=== PATIENT | male | born 1950 | race Caucasian/White ===

== ENCOUNTER 2025-06-22 13:56 | Outpatient (CLI) | payer OTHER, SELFPAY | END 2025-06-22 13:57 | disposition home or self-care (01) | PROVIDERS: PCP Nurse Practitioner Family; Visit Provider Nurse Practitioner Family | DX: R42 Dizziness and giddiness (principal); R25.1 Tremor, unspecified; R63.4 Abnormal weight loss; Z82.49 Family history of ischemic heart disease and other diseases of the circulatory system; Z13.6 Encounter for screening for cardiovascular disorders; Z13.21 Encounter for screening for nutritional disorder; R79.89 Other specified abnormal findings of blood chemistry | CPT/HCPCS: 80053; 80061; 82306; 82607; 82728; 82746; 84443; 85025 ==

== ENCOUNTER 2025-06-29 15:05 | Outpatient (CLI) | payer OTHER, SELFPAY | END 2025-06-29 15:06 | disposition home or self-care (01) | PROVIDERS: PCP Nurse Practitioner Family; Visit Provider Nurse Practitioner Family | DX: E83.19 Other disorders of iron metabolism (principal); R74.01 Elevation of levels of liver transaminase levels | CPT/HCPCS: 81256; 83540; 85045; 86803 ==

== ENCOUNTER 2025-08-08 14:47 | Outpatient (CLI) | payer OTHER, SELFPAY | END 2025-08-08 14:48 | disposition home or self-care (01) | PROVIDERS: PCP Nurse Practitioner Family; Visit Provider Nurse Practitioner Family | DX: Z12.5 Encounter for screening for malignant neoplasm of prostate (principal); R74.8 Abnormal levels of other serum enzymes | CPT/HCPCS: 80076; G0103 ==

== ENCOUNTER 2025-08-17 14:17 | Outpatient (CLI) | payer OTHER, SELFPAY ==
[2025-08-17 14:51] LABS: Creatinine* 0.6 mg/dL (0.5-1.5); Estimated Glomerular Filt Rate 102 ml/min
--- NOTE | 2025-08-17 15:00 | CRLHL7_ITS ---
For Patients: As a result of the Century Cures Act, medical imaging exams and procedure reports are released immediately into your electronic medical record. You may view this report before your referring provider. If you have questions, please contact your health care provider. INDICATION: Weight loss elevated PSA TECHNIQUE: CT chest, abdomen and pelvis acquired with 74 cc Omnipaque 350 IV contrast. Multiplanar axial, coronal, and sagittal reformats are included. MIP images. COMPARISON: None. FINDINGS: CHEST: Cardiovascular structures: Heart size is normal. Thoracic aorta and main pulmonary artery are normal in caliber. Mediastinum and marci: No mass or adenopathy. Lungs and pleura: Lungs and pleural spaces are clear. No suspicious nodules, infiltrates, or effusions. Chest wall and axilla: No mass or adenopathy. ABDOMEN AND PELVIS: Liver: Fatty appearance of the liver. Gallbladder and bile ducts: Unremarkable. Pancreas: Unremarkable. Spleen: Unremarkable. Adrenal glands: Unremarkable. Kidneys: Unremarkable. GI tract: Unremarkable. Vascular structures: Abdominal aorta is normal in caliber. Lymph nodes: Mildly prominent retroperitoneal nodes. Example 9 millimeters short axis aortocaval node Miscellaneous: Unremarkable. No free air or significant free fluid. Pelvic Organs: Nondistended urinary bladder with wall thickening. Prostate gland is normal size. Bones: Diffuse sclerotic lesions throughout the bony skeleton. Acute fracture is not seen. Degenerative change of the spine. IMPRESSION: 1. No acute pulmonary findings. 2. Prostate gland normal size. Minimally prominent retroperitoneal nodes. 3. Widespread sclerotic lesions throughout the bony skeleton suggesting bone metastasis probably from prostate cancer. Please note that all CT scans at this facility use dose modulation, iterative reconstruction, and/or weight-based dosing when appropriate to reduce radiation dose to as low as reasonably achievable. Dictated by Rose Mary Villavicencio MD @ 08/21/2025 7:12:22 AM (Electronically Signed)
== END 2025-08-17 14:18 | disposition home or self-care (01) ==
LOC: CT 14:19
PROVIDERS: PCP Nurse Practitioner Family; Visit Provider Nurse Practitioner Family
DX: R63.4 Abnormal weight loss (principal); M89.9 Disorder of bone, unspecified; R97.20 Elevated prostate specific antigen [PSA]; R74.8 Abnormal levels of other serum enzymes
CPT/HCPCS: 36415; 71260; 74177; 82565; Q9967

== ENCOUNTER 2025-08-22 13:34 | Outpatient (CLI) | payer OTHER, SELFPAY | END 2025-08-22 13:35 | disposition home or self-care (01) | PROVIDERS: PCP Nurse Practitioner Family; Visit Provider Nurse Practitioner Family | DX: R06.00 Dyspnea, unspecified (principal) | CPT/HCPCS: 80048; 85025 ==

== ENCOUNTER 2025-09-22 12:03 | Emergency (ER) | payer OTHER, SELFPAY ==
--- OUTSIDE RECORDS SUMMARY | 2025-09-01 12:00 | XMS_ITS | Encounter Summary ---
Author Organization [facility] Address [address] [place] [address] Care Team Providers Care Supervisor Engraving Name Role Phone None Reported, Pcp Primary Care Provider Unavail able Reason for Referral * Outpatient (Routine) - Closed Specialty Diagnoses / Procedures Referred By Howard acosta Referred To Contact Diagnoses Elevated Prostate-Specific Antigen Procedures URO Prostate transperineal biopsy Ananda Moss M.D. [address] [place] [phone] Phone: tel: fax: [facility] Referral ID Status Reason Start Date Expiration Date Visits Re quested Visits Authorized [id number] Closed 09/01/2025 12/02/2026 1 1 Reason for Visit * Outpatient (Routine) - Closed Specialty Diagnoses / Procedures Referred By Howard acosta Referred To Contact Urology Diagnoses Elevated Prostate-Specific Antigen Abnormal Findings On Diagnostic Imaging Of Other Specified Body Structures Nevin Sanders, C.N.P. [address] [place] [phone] Phone: tel: fax: [facility] Referral ID Status Reason Start Date Expiration Date Visits Re quested Visits Authorized [id number] Closed 08/23/2025 02/22/2027 1 1 Encounter Details Date Type Department Care Team (Latest Contact Info) Description 09/01/2025 1:00 PM CDT Comprehensive Visit Department of Urology in [place], [place] [address] [place] [phone] Ananda Moss M.D. [address] [place] [phone] Elevated Prostate-Specific Antigen (Primary Dx) Social History Tobacco Use Types Packs/Day Years Used Date Smoking Tobacco: Every Day Cigarettes 0.5 50 Smokeless Tobacco: Never Sex and Gender Information Value Date Recorded Sex Assigned at Not on file Legal Sex Male 6:28 AM DAIRY SCIENCE TEACHER Gender Identity Not on file Sexual Orientation Not on file documented as of this encounter Consult Notes * Ananda Moss M.D., M.P.H. - 09/01/2025 1:00 PM CDT Images from the original note were not included. SUBJECTIVE CHIEF COMPLAINT / REASON FOR VISIT Elevated PSA HISTORY OF PRESENT ILLNESS Micheal Briseno is a 74 y.o. male who presents for evaluation of elevated PSA. PSA: >100 08/08/2025 Prostate MRI: never CT chest/abdomen/pelvis: Locally on 08/17/2025 demonstrated prostate gland normal size. Minimally prominent retroperitoneal nodes. Widespread sclerotic lesions throughout the bony skeleton suggestiveof bone metastasis. Prostate biopsy: none Past Medical History: Hepatic stenosis Pre-DM Past Surgical History: No prior abdominal surgery History of Prior Radiation: None History of Prior Chemotherapy: None REVIEW OF SYSTEMS Complete 10-point review of systems was performed and is otherwise non- contributory except as notedabove in HPI. OBJECTIVE PHYSICAL EXAM There were no vitals filed for this visit. There is no height or weight on file to calculate BMI. BMI 20.5 Well nourished male, no distress Normocephalic, atraumatic Extraocular movements intact Respirations even and unlabored Abdomen soft, nontender Extremities warm and well perfused Musculoskeletal: moves all extremities with no apparent limitations to range of motion Neurologic: alert, oriented, converses appropriately Psych: congruent mood and affect Images personally reviewed by me: Suspicion for colin metastases on my review Assessment 74 y.o. male w/ PSA > 100 and radiographic concern for metastatic prostate cancer PLAN Office TP prostate biopsy (systematic only, just to establish a tissue diagnosis but would not pursue MRI beforehand) Staging PSMA PET CT for presumed metastatic prostate cancer [facility] and [facility] consults for presumed metastatic prostate cancer Ananda Moss MD Urologic Oncology [facility] * Bill Khanna M.D. - 09/01/2025 1:00 PM CDT Images from the original note were not included. CHIEF COMPLAINT / REASON FOR VISIT Elevated PSA HISTORY OF PRESENT ILLNESS Micheal Briseno is a 74 y.o. male who presents for evaluation of elevated PSA. PSA: >100 08/08/2025 Prostate MRI: never CT chest/abdomen/pelvis: Locally on 08/17/2025 demonstrated prostate gland normal size. Minimally prominent retroperitoneal nodes. Widespread sclerotic lesions throughout the bony skeleton suggestiveof bone metastasis. Prostate biopsy: none Past Medical History: Hepatic stenosis Pre-DM Past Surgical History: No prior abdominal surgery History of Prior Radiation: None History of Prior Chemotherapy: None REVIEW OF SYSTEMS Complete 10-point review of systems was performed and is otherwise non- contributory except as notedabove in HPI. OBJECTIVE[]Expand by Default PHYSICAL EXAM There were no vitals filed for this visit. There is no height or weight on file to calculate BMI. BMI 20.5 Well nourished male, no distress Normocephalic, atraumatic Extraocular movements intact Respirations even and unlabored Abdomen soft, nontender Extremities warm and well perfused Musculoskeletal: moves all extremities with no apparent limitations to range of motion Neurologic: alert, oriented, converses appropriately Psych: congruent mood and affect Images personally reviewed by me: Suspicion for colin metastases on my review Assessment 74 y.o. male w/ PSA > 100 and radiographic concern for metastatic prostate cancer PLAN Office TP prostate biopsy (systematic only, just to establish a tissue diagnosis but would not pursue MRI beforehand) Staging PSMA PET CT for presumed metastatic [facility] Discussed plan with Dr. Moss who agrees. Patient unfortunately left prior to visit with Dr. Moss. Voicemail left with definitive plan. Bill Khanna M.D. Urology, PGY-2 documented in this encounter Plan of Treatment Upcoming Encounters Date Type Department Care Team (Late st Contact Info) Description 10/24/2025 2:30 PM DAIRY SCIENCE TEACHER Lab Department of Laboratory Medicine and Pathology, [facility] in [place], [place] [address] [place] [phone] Ananda Moss M.D. [address] [place] [phone] 10/24/2025 4:15 PM DAIRY SCIENCE TEACHER Appointment Department of Radiology, [facility] in [place], [place] [address] [place] [phone] Ananda Moss M.D. [address] [place] [phone] 10/27/2025 1:20 PM DAIRY SCIENCE TEACHER Comprehensive Visit Department of Oncology in [place], [place] [address] [place] [phone] Jerome Gama M.D. [address] [place] [phone] documented as of this encounter Results * [place] BIOPSY PROSTATE NEEDLE/PUNCH, [place] US TRANSRECTAL (09/14/2025 8:00 AM DAIRY SCIENCE TEACHER) Narrative Garth Giang P.A.-C. - 09/14/2025 8:00 AM DAIRY SCIENCE TEACHER Garth Giang P.A.-C. 09/14/2025 3:40 PM URO Prostate transperineal biopsy Performed by: Garth Giang P.A.-C. Authorized by: Ananda Moss M.D., M.P.H. Care team members present 1. Garth Giang P.A.-C. 3. Teddy Wilkerson 5. Renee Flores L.PSanamNSanam IMPRESSION abnormal prostate ultrasound PROCEDURE DETAILS Biopsy option(s) include: Standard Biopsy type: transperineal Technique: End-fire Antibiotics at time of procedure: no ULTRASOUND DETAILS: Ultrasound image guidance used to localize target, identify at risk structures, and dynamically used to direct therapy to the target. Image(s) acquired and saved. Ultrasound performed for diagnostic purposes. Prostate height (mm): 41 Prostate width (mm): 35 Prostate length (mm): 48 Prostate (Ellipsoid) volume (cc): 36.1 CONSENT Consent obtained: written (Risks, benefits and alternatives were discussed and a written Informed Consent was obtained. Please see Informed Consent form for further details.) UNIVERSAL PROTOCOL All relevant documentation and testing were reviewed and available. All required blood products, implants, devices and or special equipment were made available as applicable. Pre-procedure verification was conducted and the correct site was marked if required. A fire risk and smoke assessment were done as applicable. The procedural time-out to verify correct patient, correct side/site, and procedure was conducted prior to performing the procedure and confirmed in a procedural pause. PRE PROCEDURE DETAILS Procedure purpose: Diagnostic Indications: Elevated PSA Digital rectal exam findings: Abnormal Skin preparation: Chlorhexidine SEDATION / ANESTHESIA Anesthesia method: local infiltration POST PROCEDURE DETAILS Procedure completed successfully: yes Complications: None COMMENTS Prostate ultrasound demonstrated large regions of hypoechoic change in the peripheral zone from apex to base. Four samples were taken from the right side labeled as right prostate. Two samples were taken from the left prostate labeled as left prostate. The patient began to not tolerate things and I terminated the procedure. Ananda Moss M.D. UROLOGY ORDERABLES Final Res ult * Bacterial Culture, Aerobic + Susceptibility, Urine (09/12/2025 11:12 AM DAIRY SCIENCE TEACHER) Urine Culture No growth after 1 day of incubation. 09/13/2025 8:03 AM DAIRY SCIENCE TEACHER [facility] Urine (Urine, Midstream) 09/12/2025 11:12 AM DAIRY SCIENCE TEACHER 09/12/2025 1:34 PM DAIRY SCIENCE TEACHER Comment:Specimen Source Site : Urine Ananda Moss M.D. LAB MICROBIOLOGY - GENERAL O RDERABLES Final Result [facility] [address] [place] [address], [facility] [place] [address] [place] [address] * (ABNORMAL) Urinalysis, with Microscopic: Urine, Midstream (09/12/2025 11:12 AM DAIRY SCIENCE TEACHER) Source Urine, Urine, Midstream 09/12/2025 11:16 AM DAIRY SCIENCE TEACHER [employer]AT Clarity Clear Clear 09/12/2025 11:21 AM DAIRY SCIENCE TEACHER [employer]AT Color Yellow 09/12/2025 11:21 AM DAIRY SCIENCE TEACHER [employer]AT Comment: ----REFERENCE VALUE---- Colorless Yellow Emeli Blood Negative Negative 09/12/2025 11:21 AM DAIRY SCIENCE TEACHER [employer]AT Nitrite, U Negative Negative 09/12/2025 11:21 AM DAIRY SCIENCE TEACHER [employer]AT Leukocyte Esterase Negative Negative 09/12/2025 11:21 AM DAIRY SCIENCE TEACHER [employer] Protein, U Trace mg/dL 09/12/2025 11:21 AM DAIRY SCIENCE TEACHER [employer] Comment: ----REFERENCE VALUE---- Negative Trace Glucose Negative Negative mg/dL 09/12/2025 11:21 AM DAIRY SCIENCE TEACHER [employer]AT Ketone Trace(A) Negative mg/dL 09/12/2025 11:21 AM DAIRY SCIENCE TEACHER [employer]AT Bilirubin Negative Negative 09/12/2025 11:21 AM DAIRY SCIENCE TEACHER [employer] pH 5.5 5.0 - 8.0 09/12/2025 11:21 AM DAIRY SCIENCE TEACHER [employer] Specific [place] 1.019 1.001 - 1.035 09/12/2025 11:21 AM DAIRY SCIENCE TEACHER [employer]AT Urobilinogen 2.0(A) 0.2 - 1.0 mg/dL 09/12/2025 11:21 AM DAIRY SCIENCE TEACHER [employer]AT White Blood Cells None Seen /hpf 09/12/2025 11:21 AM DAIRY SCIENCE TEACHER [employer]AT Comment: ----REFERENCE VALUE---- Males: 0-3 Females: 0-10 Unknown: 0-10 Red Blood Cells None Seen 0 - 2 /hpf 11:21 AM DAIRY SCIENCE TEACHER [employer]AT Hyaline Casts 1-3 /lpf 09/12/2025 11:21 AM DAIRY SCIENCE TEACHER [employer]AT Mucus Present /hpf 09/12/2025 11:21 AM DAIRY SCIENCE TEACHER [employer] Urine (Urine, Midstream) 09/12/2025 11:12 AM DAIRY SCIENCE TEACHER 09/12/2025 11:12 AM DAIRY SCIENCE TEACHER Ananda Moss M.D. LAB URINE ORDERABLES Final R esult [facility] [address] [place] [address], [place] [employer] [facility] [place] [address] [place] [address] documented in this encounter Visit Diagnoses Diagnosis Elevated Prostate-Specific Antigen- Primary Elevated Prostate-Specific Antigen- Primary documented in this encounter Care Teams Supervisor Engraving Relationship Specialty Start Date End Date None Reported, Pcp PCP - General 10/06/22 documented as of this encounter
--- OUTSIDE RECORDS SUMMARY | 2025-09-12 10:57 | XMS_ITS | Encounter Summary ---
Author Organization [facility] Address [address] [place] [address] Care Team Providers Care Cook Helper Name Role Phone None Reported, Pcp Primary Care Provider Unavail able Encounter Details Date Type Department Care Team (Latest Contact Info) Description 09/12/2025 10:57 AM SPIKE MACHINE HEATER - 09/12/2025 11:59 PM SPIKE MACHINE HEATER Hospital Encounter Department of Laboratory Medicine in [place], [place] [address] [phone] Ananda Moss M.D. 200 [place] [phone] Elevated Prostate-Specific Antigen Discharge Disposition: Home or Self Care Social History Tobacco Use Types Packs/Day Years Used Date Smoking Tobacco: Every Day Cigarettes 0.5 50 Smokeless Tobacco: Never Sex and Gender Information Value Date Recorded Sex Assigned at Not on file Legal Sex Male 6:28 AM SPIKE MACHINE HEATER Gender Identity Not on file Sexual Orientation Not on file documented as of this encounter Plan of Treatment Upcoming Encounters Date Type Department Care Team (Late st Contact Info) Description 10/24/2025 2:30 PM SPIKE MACHINE HEATER Lab Department of Laboratory Medicine and Pathology, [place], [place] [address] [place] [phone] Ananda Moss M.D. [address] [place] [phone] 10/24/2025 4:15 PM SPIKE MACHINE HEATER Appointment Department of Radiology, [facility] in [place], [place] [address] [place] [phone] Ananda Moss M.D. [address] [place] [phone] 10/27/2025 1:20 PM SPIKE MACHINE HEATER Comprehensive Visit Department of Oncology in [place], [place] [address] [place] [phone] Jerome Gama M.D. [address] [place] [phone] documented as of this encounter Procedures Procedure Name Priority Date/Time Associated Diagnosis Comments BACTERIAL CULTURE, AEROBIC + SUSC, URINE Routine 09/12/2025 11:12 AM SPIKE MACHINE HEATER Elevated Prostate-Specific Antigen URINALYSIS WITH MICROSCOPIC Routine 09/12/2025 11:12 AM SPIKE MACHINE HEATER Elevated Prostate-Specific Antigen documented in this encounter Results * Bacterial Culture, Aerobic + Susceptibility, Urine (09/12/2025 11:12 AM SPIKE MACHINE HEATER) Urine Culture No growth after 1 day of incubation. 09/13/2025 8:03 AM SPIKE MACHINE HEATER [facility] Urine (Urine, Midstream) 09/12/2025 11:12 AM SPIKE MACHINE HEATER 09/12/2025 1:34 PM SPIKE MACHINE HEATER Comment:Specimen Source Site : Urine Ananda Moss M.D. LAB MICROBIOLOGY - GENERAL O RDERABLES Final Result [facility] [address] [place] [phone], [facility] in [address] [address] * (ABNORMAL) Urinalysis, with Microscopic: Urine, Midstream (09/12/2025 11:12 AM SPIKE MACHINE HEATER) Source Urine, Urine, Midstream 09/12/2025 11:16 AM SPIKE MACHINE HEATER OWAT Clarity Clear Clear 09/12/2025 11:21 AM SPIKE MACHINE HEATER [employer]AT Color Yellow 09/12/2025 11:21 AM SPIKE MACHINE HEATER [employer] Comment: ----REFERENCE VALUE---- Colorless Yellow Emeli Blood Negative Negative 09/12/2025 11:21 AM SPIKE MACHINE HEATER OWAT Nitrite, U Negative Negative 09/12/2025 11:21 AM SPIKE MACHINE HEATER [employer]AT Leukocyte Esterase Negative Negative 09/12/2025 11:21 AM SPIKE MACHINE HEATER [employer] Protein, U Trace mg/dL 09/12/2025 11:21 AM SPIKE MACHINE HEATER [employer]AT Comment: ----REFERENCE VALUE---- Negative Trace Glucose Negative Negative mg/dL 09/12/2025 11:21 AM SPIKE MACHINE HEATER [employer] Ketone Trace(A) Negative mg/dL 09/12/2025 11:21 AM SPIKE MACHINE HEATER OWAT Bilirubin Negative Negative 09/12/2025 11:21 AM SPIKE MACHINE HEATER [employer] pH 5.5 5.0 - 8.0 09/12/2025 11:21 AM SPIKE MACHINE HEATER [employer]AT Specific [place] 1.019 1.001 - 1.035 09/12/2025 11:21 AM SPIKE MACHINE HEATER [employer]AT Urobilinogen 2.0(A) 0.2 - 1.0 mg/dL 09/12/2025 11:21 AM SPIKE MACHINE HEATER [employer]AT White Blood Cells None Seen /hpf 09/12/2025 11:21 AM SPIKE MACHINE HEATER [employer]AT Comment: ----REFERENCE VALUE---- Males: 0-3 Females: 0-10 Unknown: 0-10 Red Blood Cells None Seen 0 - 2 /hpf 11:21 AM SPIKE MACHINE HEATER OWAT Hyaline Casts 1-3 /lpf 09/12/2025 11:21 AM SPIKE MACHINE HEATER [employer]AT Mucus Present /hpf 09/12/2025 11:21 AM SPIKE MACHINE HEATER OWAT Urine (Urine, Midstream) 09/12/2025 11:12 AM SPIKE MACHINE HEATER 09/12/2025 11:12 AM SPIKE MACHINE HEATER us Ananda Moss M.D. LAB URINE ORDERABLES Final R esult [facility] [address] [place] [address], [place] OW[place] [facility] in [place] [address] [place] [address] documented in this encounter Visit Diagnoses Diagnosis Elevated Prostate-Specific Antigen documented in this encounter Care Teams Cook Helper Relationship Specialty Start Date End Date None Reported, Pcp PCP - General 10/06/22 documented as of this encounter
--- OUTSIDE RECORDS SUMMARY | 2025-09-14 08:00 | XMS_ITS | Encounter Summary ---
Author Organization [facility] [place] Address [address] [place] [address] Care Team Providers Care Group Underwriter Name Role Phone None Reported, Pcp Primary Care Provider Unavail able Reason for Visit * Outpatient (Routine) - Closed Specialty Diagnoses / Procedures Referred By Contanny t Referred To Contact Diagnoses Elevated Prostate-Specific Antigen Procedures URO Prostate transperineal biopsy Ananda Moss M.D. [address] [place] [phone] Phone: tel: fax: [facility] Referral ID Status Reason Start Date Expiration Date Visits Re quested Visits Authorized [id number] Closed 09/01/2025 12/02/2026 1 1 Encounter Details Date Type Department Care Team (Latest Contact Info) Description 09/14/2025 8:00 AM VISCERA WASHER Procedure visit Department of Urology in [place], [place] [address] [place] [phone] Ananda Moss M.D. [address] [place] [phone] Garth Giang P.A.-C. [address] [place] [phone] Elevated Prostate-Specific Antigen (Primary Dx) Social History Tobacco Use Types Packs/Day Years Used Date Smoking Tobacco: Every Day Cigarettes 0.5 50 Smokeless Tobacco: Never Sex and Gender Information Value Date Recorded Sex Assigned at Not on file Legal Sex Male 6:28 AM VISCERA WASHER Gender Identity Not on file Sexual Orientation Not on file documented as of this encounter Last Filed Vital Signs Vital Sign Reading Time Taken Comments Blood Pressure 108/74 09/14/2025 9:05 AM VISCERA WASHER Pulse 87 09/14/2025 9:05 AM VISCERA WASHER Temperature - - Respiratory Rate - - Oxygen Saturation - - Inhaled Oxygen Concentration - - Weight - - Height - - Body Mass Index - - documented in this encounter Patient Instructions * Patient Instructions* Renee Flores L.P.N. - 09/14/2025 8:00 AM VISCERA WASHER AFTER THE PROSTATE BIOPSY Urinate before you leave the clinic for the day. Return to where the biopsy was done if: You are not able to urinate when your bladder feels full. You have bright red blood in your urine during the entire urination. For several days after the biopsy, it is normal to have blood in your urine at the beginning of urination. You should drink plenty of non-alcoholic fluids while you have blood in your urine. This maypersist longer if you take aspirin or blood thinners. Blood in your ejaculate (semen) is common and may persist for weeks or perhaps months. Unless the blood is bright red for more than three days, it should go away without treatment. Blood-tinged semenis not harmful to your sexual partner. You may experience bruising, swelling and tenderness of the perineum following the procedure. Thesewill improve with time. A small bandage was placed over the perineum at the end of the procedure. This can be removed after24 hours. If it becomes soiled or wet, it can be removed earlier. Discomfort You may take a non-aspirin pain medication (such as acetaminophen or generic Tylenol???) in the recommended dose as needed for discomfort. Avoid pain relievers that can cause blood thinning until your urine is clear for at least 48 hours. Examples include aspirin, aspirin-containing products, ibuprofen (Advil???, Motrin???), and naproxen (Aleve???, Naprosyn???). Diet Right after the biopsy, drink two to four 8-ounce glasses of fluid. Continue to drink extra fluids for five hours after the biopsy. You may resume your regular diet as you feel able. Activity Rest for the remainder of the day and resume activities as you feel able. You may have mild discomfort in the biopsy area for a few days after the biopsy. For your comfort, for approximately a week after the biopsy you should avoid activities that put direct pressure on the perineum such as bicycleriding, horseback riding, or other activities with the saddle. Bathing You may shower once the bandage is removed. Avoid swimming in any pools, hot tubs, lakes/ocean for 3 days after the procedure. Driving: No sedation is given during the procedure, but you still may feel lightheaded temporarily followingthe procedure. We would recommend that you consider having someone drive you home if able. If you are driving yourself home, make sure you are feeling well before leaving the clinic. When to call your health care provider If you have any of the following symptoms, call your referring urology provider at [phone] during normal business hours. Emergent questions after hours can be addressed by calling and asking to speak to the Urology resident pest controller assistant. -An increase of bright red blood in your urine -A temperature of 100.4 degrees Fahrenheit (38 degrees Celsius) or greater -Chills -Inability to urinate or you are only able to urinate a small amount without relief PROSTATE BIOPSY RESULTS AND RELEASE OF BIOPSY RESULTS ON [facility] PATIENT ONLINE PORTAL Your referring urology service will be responsible for communicating the biopsy results. It is your right to have access to your health information. Having this information can help you become more informed and engaged in your health. [facility] [place] provides you this access through Patient Online Services. You will receive a notification that the report is available. Your biopsy results report will be will released on to the Patient Online Services portal as soon as it is authenticated by the pathology lab. This timing is variable, but generally takes between 2 to 7 business days. Reports may take longer if additional testing such additional tissue staining is required to clarify the diagnosis. If you have portal access, you will be able to see the report before your referring provider has had a chance to review it and contact you with the results and recommendations. Please allow for up to 1 week for your referring team to contact you to review the results and recommendationsonce results are finalized and visible in your portal. If you have not heard from your referring provider within 1 week of seeing the results in the portal please contact them via telephone or portal. The report will provide a summary of the outside event sales specialist's assessment of the results and may include a diagnosis. Your physician will discuss these results with you either through a secure message, a phone call or during your next scheduled appointment. If you prefer, you do not have to view the report and can wait until your referring provider contacts you either through a secure message, a phone call, or during your next appointment. However, the report is there if you want to view it and process the results in your own way. If you do review your results before your referring physician has had an opportunity to contact you, there are some good websites that might be able to provide you with some information about the issues raised by your results including [facility], [employer], and [employer]. Does patient take blood thinning medications? No. ERA WASHER documented in this encounter Procedure Notes * Garth Giang P.A.-C. - 09/14/2025 8:00 AM CSTAssociated Order(s): URO Prostate transperineal biopsy Pre-Procedure Diagnose(s): Elevated Prostate-Specific Antigen Post-Procedure Diagnose(s): Elevated Prostate-Specific Antigen URO Prostate transperineal biopsy Performed by: Garth Giang P.A.-C. Authorized by: Ananda Moss M.D., M.P.H. Care team members present 1. Garth Giang P.A.-C. 3. Teddy Wilkerson 5. Renee Flores L.P.N. IMPRESSION abnormal prostate ultrasound PROCEDURE DETAILS Biopsy [...] tolerate things and I terminated the procedure. ERA WASHER documented in this encounter Plan of Treatment Upcoming Encounters Date Type Department Care Team (Late st Contact Info) Description 10/24/2025 2:30 PM VISCERA WASHER Lab Department of Laboratory Medicine and Pathology, [address] [phone] Ananda Moss M.D. [address] [place] [phone] 10/24/2025 4:15 PM VISCERA WASHER Appointment Department of Radiology, [facility] in [address] [phone] Ananda Moss M.D. [address] [place] [phone] 10/27/2025 1:20 PM VISCERA WASHER Comprehensive Visit Department of Oncology in [address] [phone] Jerome Gama M.D. [address] [place] [phone] documented as of this encounter Procedures Procedure Name Priority Date/Time Associated Diagnosis Comments KS US TRANSRECTAL Routine 09/14/2025 8:0 0 AM VISCERA WASHER Elevated Prostate-Specific Antigen KS BIOPSY PROSTATE NEEDLE/PUNCH Routine 09/14/2025 8:00 AM VISCERA WASHER Elevated Prostate-Specific Antigen SURGICAL PATHOLOGY Routine 09/14/2025 8: 00 AM VISCERA WASHER Elevated Prostate-Specific Antigen documented in this encounter Results * KS BIOPSY PROSTATE NEEDLE/PUNCH, KS US TRANSRECTAL (09/14/2025 8:00 AM VISCERA WASHER) Narrative Garth Giang P.A.-C. - 09/14/2025 8:00 AM VISCERA WASHER aGrth Giang P.A.-C. 09/14/2025 3:40 PM URO Prostate transperineal biopsy Performed by: Garth Giang P.A.-C. Authorized by: Ananda Moss M.D., M.P.H. Care team members present 1. Garth Giang P.A.-C. 3. Teddy Wilkerson 5. Renee Flores, LSanamP.NSanam IMPRESSION abnormal prostate ultrasound PROCEDURE DETAILS Biopsy [...] tolerate things and I terminated the procedure. us Ananda Moss M.D. UROLOGY ORDERABLES Final Res ult * Surgical Pathology (09/14/2025 8:00 AM VISCERA WASHER) 09/18/2025 2:32 PM VISCERA WASHER DTL Participated in the Interpretation Man Vora D.O.-Pathology Fellow 09/18/2025 2:32 PM VISCERA WASHER DTL Report electronically signed by Stefan Simmons M.D., Ph.D. I verify that I have examined all relevant slides/materials for the specimen(s) and rendered or confirmed the diagnosis. 09/18/2025 2:32 PM VISCERA WASHER DTL Gross Description A: Received in formalin labeled with the patient's name, medical record number, and prostate, right are four pale waite soft tissue cores,measuring 1.5-1.9 cm in length and 0.1 cm in average diameter. The specimens are submitted en toto in cassettes A1-A2, two cores ineach cassette. Grossed by LMB. B: Received in formalin labeled with the patient's name, medical record number, and prostate, left are two pale waite soft tissue cores,measuring 1.6 x 0.1 x 0.1 cm and 1.7 x 0.1 x 0.1 cm. The specimens are submitted en toto in cassette B1. Grossed by LMB. 09/18/2025 2:32 PM VISCERA WASHER DTL Interpretation FINAL DIAGNOSIS A. Prostate, right, needle core biopsy: Prostatic adenocarcinoma Type: Acinar Grade Group and Frisco score: Grade Group 3 (Svitlana Score 4+3=7) Percentage of pattern 4: 90% Tumor involves 85% of overall specimen (4 of 4 cores). Most affected core is involved by tumor over 100% of its length. Large cribriform glands present. Perineural invasion present. Findings suggestive of extraprostatic extension identified. B. Prostate, left, needle core biopsy: Prostatic adenocarcinoma Type: Acinar Grade Group and Svitlana score: Grade Group 3 (Svitlana Score 4+3=7) Percentage of pattern 4: 90% Tumor involves 95% of overall specimen (2 of 2 cores). Most affected core is involved by tumor over 100% of its length. Large cribriform glands present. Digital imaging was used in the diagnostic assessment of this case. 09/18/2025 2:32 PM VISCERA WASHER DTL Tissue 09/14/2025 8:00 AM VISCERA WASHER 09/14/2025 9:59 AM VISCERA WASHER us Garth Giang P.A.-C. LAB SURG PATH ORDERAB LES Final Result [facility] [address] [place] [address], [facility] [address] [facility] [address] [place] [address] documented in this encounter Visit Diagnoses Diagnosis Elevated Prostate-Specific Antigen- Primary documented in this encounter Administered Medications Inactive Administered Medications - up to 3 most recent administrations Medication Order MAR Action Action Date Dose Rate Site lidocaine 10 mg/mL (1 %) injection 30 mL (Xylocaine) 30 mL, injection, Once, On Sarah Beth 09/14/25 at 0800, For 1 dose Given by Other 09/14/2025 8:32 AM VISCERA WASHER 30 mL documented in this encounter Care Teams Group Underwriter Relationship Specialty Start Date End Date None Reported, Pcp PCP - General 10/06/22 documented as of this encounter
[2025-09-22] VITALS (24 sets, daily range): BP systolic 118–146; BP diastolic 53–77; PULSE 74–87; RESP 20; TEMP 37.2; O2SAT 93–100; BMI 20.3
--- OUTSIDE RECORDS SUMMARY | 2025-09-22 12:05 | XMS_ITS | Encounter Summary ---
Author Organization [facility] Address [address] [place] [address] Care Team Providers Care Exhibits Curator Name Role Phone None Reported, Pcp Primary Care Provider Unavail able Reason for Visit * Reason Onset Date Comments [facility] - Outside Materials 08/28/2025 Urology Encounter Details Date Type Department Care Team (Latest Contact Info) Description 08/28/2025 Clinical Communication Department of Urology in [place], [place] [address] [place] [phone] Provider, Unknown [facility] - Outside Materials (Urology/) Social History Tobacco Use Types Packs/Day Years Used Date Smoking Tobacco: Every Day Cigarettes 0.5 50 Smokeless Tobacco: Never Sex and Gender Information Value Date Recorded Sex Assigned at Not on file Legal Sex Male 6:28 AM BUTCHER APPRENTICE Gender Identity Not on file Sexual Orientation Not on file documented as of this encounter Plan of Treatment Upcoming Encounters Date Type Department Care Team (Late st Contact Info) Description 10/24/2025 2:30 PM BUTCHER APPRENTICE Lab Department of Laboratory Medicine and Pathology, [facility] in [place], [place] [address] [place] [phone] Ananda Moss M.D. [address] [place] [phone] 10/24/2025 4:15 PM BUTCHER APPRENTICE Appointment Department of Radiology, [facility], in [place], [place] [address] [place] [phone] Ananda Moss M.D. [address] [place] [phone] 10/27/2025 1:20 PM BUTCHER APPRENTICE Comprehensive Visit Department of Oncology in [place], [place] [address] [place] [phone] Jerome Gama M.D. [address] [place] [phone] documented as of this encounter Visit Diagnoses Not on filedocumented in this encounter Care Teams Exhibits Curator Relationship Specialty Start Date End Date None Reported, Pcp PCP - General 10/06/22 documented as of this encounter
--- OUTSIDE RECORDS SUMMARY | 2025-09-22 12:05 | XMS_ITS | Encounter Summary ---
Author Organization [facility] Address [address] [place] [address] Care Team Providers Care Wax Engraver Name Role Phone None Reported, Pcp Primary Care Provider Unavail able Reason for Referral * Outpatient (Routine) - Closed Specialty Diagnoses / Procedures Referred By Contac t Referred To Contact Urology Diagnoses Elevated Prostate-Specific Antigen Abnormal Findings On Diagnostic Imaging Of Other Specified Body Structures Nevin Sanders, C.N.P. [address] [place] [address] Phone: tel: fax: [facility] Referral ID Status Reason Start Date Expiration Date Visits Re quested Visits Authorized [id number] Closed 08/23/2025 02/22/2027 1 1 Encounter Details Date Type Department Care Team (Late Contact Info) Description 08/23/[address] [facility] [address] [place] [phone] Nevin Sanders, C.N.P. [address] [place] [address] Elevated Prostate-Specific Antigen (Primary Dx); Abnormal Findings On Diagnostic Imaging Of Other Specified Body Structures Social History Tobacco Use Types Packs/Day Years Used Date Smoking Tobacco: Never Assessed Sex and Gender Information Value Date Recorded Sex Assigned at Not on file Legal Sex Male 6:28 AM ABA THERAPIST Gender Identity Not on file Sexual Orientation Not on file documented as of this encounter Plan of Treatment Upcoming Encounters Date Type Department Care Team (Late st Contact Info) Description 10/24/2025 2:30 PM ABA THERAPIST Lab Department of Laboratory Medicine and Pathology, [facility], in [place], [place] [address] [place] [phone] Ananda Moss M.D. [address] [place] [phone] 10/24/2025 4:15 PM ABA THERAPIST Appointment Department of Radiology, [facility] in [place], [place] [address] [place] [address] Ananda Moss M.D. [address] [place] [phone] 10/27/2025 1:20 PM ABA THERAPIST Comprehensive Visit Department of Oncology in [place], [place] [address] [place] [address] Jerome Gama M.D. [address] [place] [phone] Scheduled Referrals Name Type Priority Associated Diagnoses Orde r Schedule Urology Referral Outpatient Referral Routine Elevated Prostate-Specific Antigen Abnormal Findings On Diagnostic Imaging Of Other Specified Body Structures Expected: 08/23/2025 (Approximate), Expires: 11/23/2026 documented as of this encounter Visit Diagnoses Diagnosis Elevated Prostate-Specific Antigen- Primary Abnormal Findings On Diagnostic Imaging Of Other Specified Body Structures documented in this encounter Care Teams Wax Engraver Relationship Specialty Start Date End Date None Reported, Pcp PCP - General 10/06/22 documented as of this encounter
--- OUTSIDE RECORDS SUMMARY | 2025-09-22 12:05 | XMS_ITS | Encounter Summary ---
Author Organization [facility] Address [address] [place] [address] Care Team Providers Care Test Development Engineer Name Role Phone None Reported, Pcp Primary Care Provider Unavail able Reason for Referral * Outpatient (Routine) - Authorized Specialty Diagnoses / Procedures Referred By Howard t Referred To Contact Medical Oncology / Oncology Diagnoses Primary Malignant Neoplasm Of Prostate (HCC) Ananda Moss M.D. 200 [place] [address] Phone: tel: fax: [facility] Referral ID Status Reason Start Date Expiration Date V isits Requested Visits Authorized [id number] Authorized 09/19/2025 03/21/2027 1 1 ETING TECHNOLOGY SPECIALIST * MRI/CAT/PET Scan (Routine) - Authorized Specialty Diagnoses / Procedures Referred By Howard t Referred To Contact Diagnoses Primary Malignant Neoplasm Of Prostate (HCC) Procedures PET CT Skull to Thigh PSMA [place] [address] Phone: tel: fax: [facility] Referral ID Status Reason Start Date Expiration Date V isits Requested Visits Authorized [id number] Authorized 09/19/2025 12/20/2026 1 1 ETING TECHNOLOGY SPECIALIST Encounter Details Date Type Department Care Team (Late st Contact Info) Description 09/19/2025 Clinical Communication Department of Urology in [place], [place] [address] [place] [phone] Ananda Moss M.D. [address] [place] [phone] Social History Tobacco Use Types Packs/Day Years Used Date Smoking Tobacco: Every Day Cigarettes 0.5 50 Smokeless Tobacco: Never Sex and Gender Information Value Date Recorded Sex Assigned at Not on file Legal Sex Male 6:28 AM MARKETING TECHNOLOGY SPECIALIST Gender Identity Not on file Sexual Orientation Not on file documented as of this encounter Plan of Treatment Upcoming Encounters Date Type Department Care Team (Late st Contact Info) Description 10/24/2025 2:30 PM MARKETING TECHNOLOGY SPECIALIST Lab Department of Laboratory Medicine and Pathology, [place], [place] [address] [place] [phone] Ananda Moss M.D. [address] [place] [phone] 10/24/2025 4:15 PM MARKETING TECHNOLOGY SPECIALIST Appointment Department of Radiology, [place], [place] [address] [place] [phone] Ananda Moss M.D. [address] [place] [phone] 10/27/2025 1:20 PM MARKETING TECHNOLOGY SPECIALIST Comprehensive Visit Department of Oncology in [address] [phone] Jerome Gama M.D. [address] [place] [phone] Scheduled Orders Name Type Priority Associated Diagnoses Order Schedule PET CT Skull to Thigh PSMA Imaging RAD - Routine (most inpatients and all outpatients) Primary Malignant Neoplasm Of Prostate (HCC) Expected: 09/19/2025 (Approximate), Expires: 12/20/2026 Comprehensive Metabolic Panel Lab Routine Primary Malignant Neoplasm Of Prostate (HCC) Expected: 09/19/2025, Expires: 12/20/2026 CBC with Differential, Blood Lab Routine Primary Malignant Neoplasm Of Prostate (HCC) Expected: 09/19/2025, Expires: 12/20/2026 Testosterone, Total and Free Lab Routine Primary Malignant Neoplasm Of Prostate (HCC) Expected: 09/19/2025, Expires: 12/20/2026 Scheduled Referrals Name Type Priority Associated Diagnoses Orde r Schedule Oncology - Medical, consult (clinic) Outpatient Referral Routine Primary Malignant Neoplasm Of Prostate (HCC) Expected: 09/19/2025, Expires: 12/20/2026 documented as of this encounter Visit Diagnoses Diagnosis Primary Malignant Neoplasm Of Prostate (HCC)- Primary documented in this encounter Care Teams Test Development Engineer Relationship Specialty Start Date End Date None Reported, Pcp PCP - General 10/06/22 documented as of this encounter
--- OUTSIDE RECORDS SUMMARY | 2025-09-22 12:06 | XMS_ITS | Clinical Summary ---
Author Organization [facility] Address [address] [place] [address] Care Team Providers Care Brazer [employer] Name Role Phone None Reported, Pcp Primary Care Provider Unavail able Source Comments Patient records contain information from all sites at [facility]. For routine questions regarding patient records, call [phone] during business hours, M-F 8:00 AM - 5:00 PM Central Time. Record requests for emergency care only can be directed to [phone] at any time.[facility] Allergies No known active allergies Medications cefdinir (Omnicef) 300 mg capsuleIndicati ons:Elevated Prostate-Specif ic Antigen Take 1 capsule (300 mg total) by mouth once for 1 dose. Take one hour prior to prostate biopsy 1 capsule 09/11/20 25 Hospital, Clinic, or Other Facility Administered Medication Ordered Dose Route Frequency Start Date End Date Status lidocaine 10 mg/mL (1 %) injection 30 mL (Xylocaine) 30 mL inj Once 09/14/2025 09/14/20 25 Ended Encounters Date Type Department Care Team Description 09/19/2025 Clinical Communication Department of Urology in [place], [place] [address] [place] [address] Ananda Moss M.D. 09/14/2025 8:00 AM CARTOGRAPHY PROFESSOR Procedure visit Department of Urology in [place], [place] [address] [place] [address] Ananda Moss M.D. Christensen, Carl M P.A.Partha Elevated Prostate-Specific Antigen (Primary Dx) 09/12/2025 10:57 AM CARTOGRAPHY PROFESSOR - 09/12/2025 11:59 PM CARTOGRAPHY PROFESSOR Hospital Encounter Department of Laboratory Medicine in [place], [place] [address] [place] [address] Ananda Moss M.D. Elevated Prostate-Specific Antigen Discharge Disposition: Home or Self Care 09/01/2025 1:00 PM CDT Comprehensive Visit Department of Urology in [place], [place] [address] [place] [address] Ananda Moss M.D. Elevated Prostate-Specific Antigen (Primary Dx) 08/28/2025 Clinical Communication Department of Urology in [place], [place] [address] [place] [address] Provider, Unknown [facility] - Outside Materials (Urology/) 08/23/2025 [facility] [address] [place] [address] Nevin Sanders C.NSanamPSanam Elevated Prostate-Specific Antigen (Primary Dx); Abnormal Findings On Diagnostic Imaging Of Other Specified Body Structures from Last 3 Months Immunizations Immunization Administration Dates Next Due HepB, Unspecified 06/23/2000,12/09/1999,11/08/19 00 Influenza Split 10/11/2003,09/20/2001 Social History Tobacco Use Types Packs/Day Years Used Date Smoking Tobacco: Every Day Cigarettes 0.5 50 Smokeless Tobacco: Never Sex and Gender Information Value Date Recorded Sex Assigned at Not on file Legal Sex Male 6:28 AM CARTOGRAPHY PROFESSOR Gender Identity Not on file Sexual Orientation Not on file Last Filed Vital Signs Vital Sign Reading Time Taken Comments Blood Pressure 108/74 09/14/2025 9:05 AM CARTOGRAPHY PROFESSOR Pulse 87 09/14/2025 9:05 AM CARTOGRAPHY PROFESSOR Temperature - - Respiratory Rate - - Oxygen Saturation - - Inhaled Oxygen Concentration - - Weight - - Height - - Body Mass Index - - Plan of Treatment Upcoming Encounters Date Type Department Care Team (Late st Contact Info) Description 10/24/2025 2:30 PM CARTOGRAPHY PROFESSOR Lab Department of Laboratory Medicine and Pathology, [facility] in [place], [place] [address] [place] [address] Ananda Moss M.D. [address] [place] [address] 10/24/2025 4:15 PM CARTOGRAPHY PROFESSOR Appointment Department of Radiology, [facility], in [place], [place] [address] [place] [address] Ananda Moss M.D. [address] [place] [address] 10/27/2025 1:20 PM CARTOGRAPHY PROFESSOR Comprehensive Visit Department of Oncology in [place], [place] [address] [place] [phone] Jerome Gama M.D. [address] [place] [phone] Health Maintenance Due Date Last Done Comments Abdominal Aortic Aneurysm (AAA) Screen 1951 CT Colonography 1951 Cologuard 1950 Colonoscopy 1950 Colorectal Cancer Screening 1950 FIT 1950 Hepatitis C Screening 1950 Lung Cancer Screening 1951 Tobacco Cessation counseling 1951 Zoster Vaccines (1 of 2) 2001 Fasting Glucose for Diabetes Screening 09/30/2022 09/30/2019 Depression Screening (Annual PHQ-2) 11/02/2024 Fall Risk Screen (Annual) 11/02/2024 COVID-19 Vaccine (1 - 2024-2 6 season) 2025 Influenza Vaccine (#1) 2025 3, 09/20/2001 DTaP,Tdap,and Td Vaccines (2 - Td or Tdap) 08/08/2035 08/08/2025 Hepatitis B Vaccines Completed 06/23/2000, 12/09/1999, 11/08/1999 Pneumococcal vaccine (50+ years) Completed 08/08/2025 IPV Vaccines Aged Out No longer eligi ble based on patient's age to complete this topic Procedures Procedure Name Priority Date/Time Associated Diagnosis Comments WI US TRANSRECTAL Routine 09/14/2025 8:0 0 AM CARTOGRAPHY PROFESSOR Elevated Prostate-Specific Antigen WI BIOPSY PROSTATE NEEDLE/PUNCH Routine 09/14/2025 8:00 AM CARTOGRAPHY PROFESSOR Elevated Prostate-Specific Antigen SURGICAL PATHOLOGY Routine 09/14/2025 8: 00 AM CARTOGRAPHY PROFESSOR Elevated Prostate-Specific Antigen URINALYSIS WITH MICROSCOPIC Routine 09/12/2025 11:12 AM CARTOGRAPHY PROFESSOR Elevated Prostate-Specific Antigen BACTERIAL CULTURE, AEROBIC + SUSC, URINE Routine 09/12/2025 11:12 AM CARTOGRAPHY PROFESSOR Elevated Prostate-Specific Antigen OUTSIDE CT BODY Routine 08/17/2025 3:15 PM CDT OUTSIDE MR NEURO Routine 08/02/2025 10:0 0 AM CDT OUTSIDE US BODY Routine 08/02/2025 9:25 AM CDT OUTSIDE DX CHEST Routine 06/22/2025 2:30 PM CDT from Last 3 Months Results * WI BIOPSY PROSTATE NEEDLE/PUNCH, WI US TRANSRECTAL (09/14/2025 8:00 AM CARTOGRAPHY PROFESSOR) Narrative Garth Giang P.A.-C. - 09/14/2025 8:00 AM CARTOGRAPHY PROFESSOR Garth Giang P.A.-C. 09/14/2025 3:40 PM URO Prostate transperineal biopsy Performed by: Garth Giang P.A.-C. Authorized by: Ananda Moss M.D., M.P.H. Care team members present 1. Garth Giang P.A.-C. 3. Teddy Wilkerson 5. Renee Flores LSanamPSanamN. IMPRESSION abnormal prostate ultrasound PROCEDURE DETAILS Biopsy [...] ult * Surgical Pathology (09/14/2025 8:00 AM CARTOGRAPHY PROFESSOR) 09/18/2025 2:32 PM CARTOGRAPHY PROFESSOR DTL Participated in the Interpretation Man Vora D.O.-Pathology Fellow 09/18/2025 2:32 PM CARTOGRAPHY PROFESSOR DTL Report electronically signed by Stefan Simmons M.D., Ph.D. I verify that I have examined all relevant slides/materials for the specimen(s) and rendered or confirmed the diagnosis. 09/18/2025 2:32 PM CARTOGRAPHY PROFESSOR DTL Gross Description A: Received in formalin [...] B1. Grossed by LMB. 09/18/2025 2:32 PM CARTOGRAPHY PROFESSOR DTL Interpretation FINAL DIAGNOSIS A. Prostate, right, needle core biopsy: Prostatic adenocarcinoma Type: Acinar Grade Group and [place] score: Grade Group 3 (Svitlana Score 4+3=7) [...] assessment of this case. 09/18/2025 2:32 PM CARTOGRAPHY PROFESSOR DTL Tissue 09/14/2025 8:00 AM CARTOGRAPHY PROFESSOR 09/14/2025 9:59 AM CARTOGRAPHY PROFESSOR Garth Giang P.A.-C. LAB SURG PATH ORDERAB LES Final Result [facility] [address] [place] [address], [facility] DTL [address] [place] [address] * Bacterial Culture, Aerobic + Susceptibility, Urine (09/12/2025 11:12 AM CARTOGRAPHY PROFESSOR) Urine Culture No growth after 1 day of incubation. 09/13/2025 8:03 AM CARTOGRAPHY PROFESSOR MKTO Urine (Urine, Midstream) 09/12/2025 11:12 AM CARTOGRAPHY PROFESSOR 09/12/2025 1:34 PM CARTOGRAPHY PROFESSOR Comment:Specimen Source Site : Urine us Ananda Moss M.D. LAB MICROBIOLOGY - GENERAL O RDERABLES Final Result [facility] [address] [place] [address], [place] MKTO [facility] in [place] [address] [place] [address] * (ABNORMAL) Urinalysis, with Microscopic: Urine, Midstream (09/12/2025 11:12 AM CARTOGRAPHY PROFESSOR) Source Urine, Urine, Midstream 09/12/2025 11:16 AM CARTOGRAPHY PROFESSOR OWAT Clarity Clear Clear 09/12/2025 11:21 AM CARTOGRAPHY PROFESSOR OWAT Color Yellow 09/12/2025 11:21 AM CARTOGRAPHY PROFESSOR OWAT Comment: ----REFERENCE VALUE---- Colorless Yellow Emeli Blood Negative Negative 09/12/2025 11:21 AM CARTOGRAPHY PROFESSOR OWAT Nitrite, U Negative Negative 09/12/2025 11:21 AM CARTOGRAPHY PROFESSOR OWAT Leukocyte Esterase Negative Negative 09/12/2025 11:21 AM CARTOGRAPHY PROFESSOR OWAT Protein, U Trace mg/dL 09/12/2025 11:21 AM CARTOGRAPHY PROFESSOR OWAT Comment: ----REFERENCE VALUE---- Negative Trace Glucose Negative Negative mg/dL 09/12/2025 11:21 AM CARTOGRAPHY PROFESSOR OWAT Ketone Trace(A) Negative mg/dL 09/12/2025 11:21 AM CARTOGRAPHY PROFESSOR OWAT Bilirubin Negative Negative 09/12/2025 11:21 AM CARTOGRAPHY PROFESSOR OWAT pH 5.5 5.0 - 8.0 09/12/2025 11:21 AM CARTOGRAPHY PROFESSOR OWAT Specific Riner 1.019 1.001 - 1.035 09/12/2025 11:21 AM CARTOGRAPHY PROFESSOR OWAT Urobilinogen 2.0(A) 0.2 - 1.0 mg/dL 09/12/2025 11:21 AM CARTOGRAPHY PROFESSOR OWAT White Blood Cells None Seen /hpf 09/12/2025 11:21 AM CARTOGRAPHY PROFESSOR OWAT Comment: ----REFERENCE VALUE---- Males: 0-3 Females: 0-10 Unknown: 0-10 Red Blood Cells None Seen 0 - 2 /hpf 11:21 AM CARTOGRAPHY PROFESSOR OWAT Hyaline Casts 1-3 /lpf 09/12/2025 11:21 AM CARTOGRAPHY PROFESSOR OWAT Mucus Present /hpf 09/12/2025 11:21 AM CARTOGRAPHY PROFESSOR OWAT Urine (Urine, Midstream) 09/12/2025 11:12 AM CARTOGRAPHY PROFESSOR 09/12/2025 11:12 AM CARTOGRAPHY PROFESSOR Ananda Moss M.D. LAB URINE ORDERABLES Final R esult Performing Organization Address [facility] de Phone Number [facility] [address] [place] [address], [place] OW[place] [facility] [place] [address] [place] [address] * CT chest abdomen pelv w con-Outside CT Body (08/17/2025 3:15 PM CDT) Narrative [facility] - 08/25/2025 8:00 AM CDT This order has been created and auto-finalized to support the import of outside images. If available, original interpretation can be found on the Media Tab in Chart Review, in Document Viewer, as an image in InfinityView or as an Addendum. If a re-interpretation or overread is required please follow defined workflow. us Provider Not In System IMG CT PROCEDURES Final R esult Performing Organization Address [facility] de Phone Number [facility] NA * MR BRAIN WO CONTRAST-Outside MR Neuro (08/02/2025 10:00 AM CDT) Narrative [facility] - 08/25/2025 7:56 AM CDT This order has been created and auto-finalized to support the import of outside images. If available, original interpretation can be found on the Media Tab in Chart Review, in Document Viewer, as an image in InfinityView or as an Addendum. If a re-interpretation or overread is required please follow defined workflow. us Provider Not In System IMG MRI PROCEDURES Final Result Performing Organization Address [facility] Co de Phone Number [facility] NA * US abdomen limited-Outside US Body (08/02/2025 9:25 AM CDT) Narrative [facility] - 08/25/2025 7:54 AM CDT This order has been created and auto-finalized to support the import of outside images. If available, original interpretation can be found on the Media Tab in Chart Review, in Document Viewer, as an image in InfinityView or as an Addendum. If a re-interpretation or overread is required please follow defined workflow. us Provider Not In System IMG US PROCEDURES Final R esult Performing Organization Address [facility] Co de Phone Number [facility] NA * XR chest 2V-Outside Chest Xray (06/22/2025 2:30 PM CDT) Narrative [facility] - 08/25/2025 7:55 AM CDT This order has been created and auto-finalized to support the import of outside images. If available, original interpretation can be found on the Media Tab in Chart Review, in Document Viewer, as an image in InfinityView or as an Addendum. If a re-interpretation or overread is required please follow defined workflow. us Provider Not In System IMG DIAGNOSTIC IMAGING WI OCEDURES Final Result Performing Organization Address [facility] Co de Phone Number [facility] NA from Last 3 Months Insurance [employer] Care Teams Brazer [employer] Relationship Specialty Start Date End Date None Reported, Pcp PCP - General 10/06/22
--- OUTSIDE RECORDS SUMMARY | 2025-09-22 12:06 | XMS_ITS | Clinical Summary ---
Author Organization [facility] Address [address] [place] [address] Care Team Providers Care Presser All Around Name Role Phone Pcp, No Primary Care Provider Unavailabl e Allergies No known active allergies Medications No known medications Active Problems No known active problems Social History Tobacco Use Types Packs/Day Years Used Date Smoking Tobacco: Never Assessed Sex and Gender Information Value Date Recorded Sex Assigned at Not on file Legal Sex Male 6:59 AM TIP FINISHER Gender Identity Not on file Sexual Orientation Not on file Obstetrics History Last Filed Vital Signs Vital Sign Reading Time Taken Comments Blood Pressure 116/72 09/30/2019 10:20 PM TIP FINISHER Pulse 87 10/01/2019 12:00 AM TIP FINISHER Temperature 36.8 C (98.3 F) 09/30/2019 9:25 PM TIP FINISHER Respiratory Rate 20 09/30/2019 9:25 PM TIP FINISHER Oxygen Saturation 95% 10/01/2019 12:00 AM TIP FINISHER Inhaled Oxygen Concentration - - Weight 80.7 kg (178 lb) 09/30/2019 9:25 PM TIP FINISHER Height 182.9 cm (6') 09/30/2019 9:25 PM TIP FINISHER Body Mass Index 24.14 09/30/2019 9:25 PM TIP FINISHER Plan of Treatment Not on file Insurance MEDICARE PART B HB ONLY MEDICARE PART A HB ONLY Care Teams Presser All Around Relationship Specialty Start Date End Date Pcp, No . PCP - General 03/08/09
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
--- NOTE | 2025-09-22 13:18 | CRLHL7_ITS ---
For Patients: As a result of the Century Cures Act, medical imaging exams and procedure reports are released immediately into your electronic medical record. You may view this report before your referring provider. If you have questions, please contact your health care provider. Indication: bilateral leg swelling, prostate cancer Technique: Real-time longitudinal and transverse sonographic grayscale imaging with and without compression, as well as color, duplex, and spectral Doppler imaging before and after augmentation, was obtained of the deep system of the bilateral lower extremities, including the common femoral, femoral, popliteal, posterior tibial, and peroneal veins. Comparison: None. Findings: Right lower extremity: Common femoral vein: No evidence of thrombus. Femoral vein: No evidence of thrombus. Popliteal vein: Thrombus is seen. Calf veins: Patent. Left lower extremity: Common femoral vein: No evidence of thrombus. Femoral vein: No evidence of thrombus. Popliteal vein: No evidence of thrombus. Calf veins: Patent. Incidental note of reflux. Impression: 1. Right popliteal deep vein thrombus. 2. No left sided deep vein thrombus is seen. Findings discussed with Dr. Rico Manzo at 2:30 p.m. on 09/22/2025. Dictated by Jono Rehman MD @ 09/22/2025 2:29:00 PM (Electronically Signed)
[2025-09-22 13:42] LABS: Appearance Urine Clear (Clear)
--- NOTE | 2025-09-22 14:13 | CRLHL7_ITS ---
For Patients: As a result of the Century Cures Act, medical imaging exams and procedure reports are released immediately into your electronic medical record. You may view this report before your referring provider. If you have questions, please contact your health care provider. Indication: EXERTIONAL DYSPNEA, POSITIVE DVT Technique: CTA chest, pulmonary embolism protocol, utilizing 95 mL Isovue 370 IV contrast Comparison: CT chest/abdomen/pelvis on August 17, 2025 Findings: Thyroid nodules. No pathologically enlarged lymph nodes throughout the thorax. The heart is normal in size. No CT evidence of acute right heart strain. Coronary artery calcifications. Trace aortic valve and mitral annular calcifications. The thoracic aorta and pulmonary artery are normal in caliber. There is no pulmonary embolism. Small volume left and moderate volume right pleural effusions with mild adjacent atelectatic lung. No focal airspace consolidation or pneumothorax. Similar appearing mild biapical pleural/parenchymal scarring and trace emphysematous changes. No suspicious pulmonary nodules or masses. The airways are clear. The imaged upper abdomen is unremarkable. No acute fracture or malalignment. There are some degenerative changes throughout the spine. Redemonstration of diffuse scattered sclerotic lesions throughout the bones, suggesting osseous metastases. Impression: 1. No pulmonary embolism. 2. Bilateral pleural effusions with mild adjacent atelectatic lung. Please note that all CT scans at this facility use dose modulation, iterative reconstruction, and/or weight-based dosing when appropriate to reduce radiation dose to as low as reasonably achievable. Dictated by Pedro Becker MD @ 09/22/2025 3:06:53 PM (Electronically Signed)
[2025-09-22 14:28] LABS: Hematocrit* 28.9 % (37.0-53.0); Hemoglobin* 9.4 gm/dL (13.5-17.5); Immature Granulocytes Pct Auto 6.2 %; Mean Corpuscular HGB Conc 33 gm/dL (32-36); Mean Corpuscular Hemoglobin 34 pg (26-34); Mean Corpuscular Volume 104 fL (80-100); RDW Coefficient of Variation % 14.3 % (11.5-15.5); Red Blood Count* 2.78 m/uL (4.30-5.90); White Blood Count* 7.92 K/uL (4.50-11.00)
[2025-09-22 14:47] LABS: Albumin* 3.4 g/dL (3.3-5.0); Chloride* 102 mmol/L (96-114); Potassium* 4.3 mmol/L (3.6-5.1); Sodium* 133 mmol/L (135-149)
[2025-09-22 14:49] LABS: Blood Urea Nitrogen* 10 mg/dL (7-30); Creatinine* 0.5 mg/dL (0.5-1.5); Est. Creatinine Clearance* 63.31; Estimated Glomerular Filt Rate 108 ml/min
[2025-09-22 14:50] LABS: Alanine Aminotransferase* 12 U/L (4-50); Alkaline Phosphatase* 1000 U/L (40-150); Anion Gap 6 mEq/L (7-15); Aspartate Amino Transferase* 46 U/L (12-35); Bilirubin Direct* 0.3 mg/dL (0.0-0.5); Bilirubin Total* 0.7 mg/dL (0.1-1.5); Calcium* 8.4 mg/dL (8.4-10.6); Carbon Dioxide* 25 mmol/L (20-32); Glucose* 93 mg/dL (60-115); Total Protein* 6.0 g/dL (6.0-8.3)
[2025-09-22] MEDS: 0.9 % SODIUM CHLORIDE 500 ML 500 ML IV (14:59)
[2025-09-22 15:05] LABS: NT Pro B Type NatriureticPept* 1180 pg/mL (See Note)
[2025-09-22 15:47] LABS: Immature Granulocytes Abs Auto 0.40 K/uL (0.00-0.30); Lymphocytes Absolute Auto 1.90 K/uL (0.90-2.90)
[2025-09-22 15:48] LABS: Slide Review Reflex Yes
[2025-09-22 15:49] LABS: Slide Review Acceptable Review (Acceptable)
[2025-09-22 15:55] LABS: D Dimer Quantitative* > 20.00 ug/ml (0.00-0.50)
[2025-09-22] MEDS: APIXABAN 5 MG TABLET 10 MG PO (16:47)
[2025-09-22] MEDS: OMEPRAZOLE 20 MG CAPSULE DR PO (16:54)
[2025-09-22 17:22] LABS: Fecal Occult Blood* Negative (Negative)
== END 2025-09-22 17:35 | disposition home or self-care (01) ==
PROVIDERS: Emergency Provider Family Medicine; PCP Nurse Practitioner Family
DX: I82.431 Acute embolism and thrombosis of right popliteal vein (principal); D64.9 Anemia, unspecified; R60.9 Edema, unspecified; C61 Malignant neoplasm of prostate; C79.51 Secondary malignant neoplasm of bone; Z79.01 Long term (current) use of anticoagulants
CPT/HCPCS: 36415; 51798; 71275; 80048; 80076; 81001; 82270; 83880; 85025; 85379; 86140; 93970; 96360; 99284; 99285; A9270; J7030; Q9967

== ENCOUNTER 2025-10-06 12:10 | Outpatient (CLI) | payer OTHER, SELFPAY | END 2025-10-06 12:11 | disposition home or self-care (01) | LOC: KYNREF 12:12 | PROVIDERS: PCP Nurse Practitioner Family; Visit Provider Nurse Practitioner Family | DX: D64.9 Anemia, unspecified (principal) | CPT/HCPCS: 85025 ==

== ENCOUNTER 2025-10-09 15:16 | Outpatient (CLI) | payer OTHER, SELFPAY | END 2025-10-09 15:17 | disposition home or self-care (01) | PROVIDERS: PCP Nurse Practitioner Family; Visit Provider Nurse Practitioner Family | DX: D64.9 Anemia, unspecified (principal); Z13.21 Encounter for screening for nutritional disorder | CPT/HCPCS: 82306; 83540; 85025 ==

== ENCOUNTER 2025-10-10 14:38 | Emergency (ER) | payer OTHER, SELFPAY ==
[2025-10-10 15:14] VITALS: BP 118/67; PULSE 89; RESP 20; TEMP 37.7; O2SAT 94
== END 2025-10-10 16:08 | disposition left against medical advice (07) ==
LOC: ED 15:40
PROVIDERS: Emergency Provider Student in an Organized Health Care Education/Training Program; PCP Nurse Practitioner Family
DX: Z53.21 Procedure and treatment not carried out due to patient leaving prior to being seen by health care provider (principal)

== ENCOUNTER 2025-10-23 14:50 | Outpatient (CLI) | payer OTHER, SELFPAY | END 2025-10-23 14:51 | disposition home or self-care (01) | LOC: NFLDREF 10-27 12:07 | PROVIDERS: PCP Nurse Practitioner Family; Referring Provider Nurse Practitioner Family; Visit Provider Nurse Practitioner Family | DX: D64.9 Anemia, unspecified (principal) | CPT/HCPCS: 85025 ==